=== PATIENT | female | born 1970 | race Caucasian/White ===

== ENCOUNTER → 2017-11-29 | Outpatient (CLI) | payer OTHER ==
[~2017-11-29] MED LIST: OXYC-737 PO
--- NOTE | 2017-11-29 09:54 | DIAGNOSTIC IMAGING REPORT ---
KUB HISTORY: Right-sided kidney stones. Postop. COMPARISON: None. FINDINGS: The bowel gas pattern is unremarkable. There are no dilated loops of small bowel to suggest an obstruction. There is a single 3 mm calcification overlying the mid right renal shadow. This may represent a small stone. No left renal calculi. No definite ureteral calculi. Stable calcifications in the deep pelvis likely represent phleboliths. No pneumoperitoneum or pneumatosis. IMPRESSION: 1. A 3 mm calcification overlying the mid right kidney suggestive of a small stone. However, this is in a slightly different location from the prior study. 2. No ureteral calculi. Electronically signed by: Zoran Baird M.D. 11/29/2017 9:52 AM Dictated Date/Time: 11/29/2017 9:51 AM
== END | disposition home or self-care (01) ==
LOC: C.RAD 09:21
PROVIDERS: ATTEND Urology
DX: N20.0 Calculus of kidney (principal)

== ENCOUNTER → 2017-11-29 | Outpatient (CLI) | payer OTHER | END | disposition home or self-care (01) | LOC: C.LABSPEC 15:07 | PROVIDERS: ATTEND Urology | DX: N20.0 Calculus of kidney (principal) ==